=== PATIENT | female | born 1955 | race Caucasian/White ===

== ENCOUNTER → 2017-01-20 | Outpatient (CLI) | payer BC, OTHER ==
[~2017-01-20] MED LIST: AMBIEN 5MG TABLE5 MG PO; AMOXICILLIN 8751 TAB PO; CELEXA10 MG PO; CELEXA40 MG PO; FLEXERIL 1010 MG/TAB PO; LEVAQUIN 750MG750 M1 PO; LUNESTA 1MG TAB1 MG PO; LUNESTA3 MG PO; NORCO 325 MG-51 TAB PO; PERCOCET 325 MG1 TA2 PO; PREMPRO 0.3 MG-1 TAB PO; PROAIR HFA0.09 MG/AC IH
== END ==
LOC: MC.RAD 13:20
DX: Z12.31 Encounter for screening mammogram for malignant neoplasm of breast (principal); D24.2 Benign neoplasm of left breast; D24.1 Benign neoplasm of right breast

== ENCOUNTER 2017-10-12 15:48 | Outpatient (RCR) | payer BC | END 2017-10-14 15:44 | disposition home or self-care (01) | LOC: COL.CR 15:48 | DX: I50.22 Chronic systolic (congestive) heart failure (principal) ==

== ENCOUNTER → 2018-03-27 | Outpatient (CLI) | payer BC | LOC: MC.RAD 10:20 | DX: Z12.31 Encounter for screening mammogram for malignant neoplasm of breast (principal); Z98.82 Breast implant status ==

== ENCOUNTER 2018-06-28 14:25 | Outpatient (RCR) | payer SELFPAY | END 2018-06-29 | disposition home or self-care (01) | LOC: COL.CR | DX: Z02.9 Encounter for administrative examinations, unspecified (principal) ==

== ENCOUNTER 2018-09-25 13:11 | Outpatient (RCR) | payer SELFPAY | END 2018-09-26 | disposition home or self-care (01) | LOC: COL.CR | DX: Z02.9 Encounter for administrative examinations, unspecified (principal) ==

== ENCOUNTER 2018-12-22 14:38 | Outpatient (RCR) | payer SELFPAY | END 2018-12-28 | disposition home or self-care (01) | LOC: COL.CR | DX: Z02.89 Encounter for other administrative examinations (principal) ==

== ENCOUNTER 2019-03-30 15:29 | Outpatient (RCR) | payer SELFPAY | END 2019-04-01 | disposition home or self-care (01) | LOC: COL.CR | DX: Z02.89 Encounter for other administrative examinations (principal) ==

== ENCOUNTER → 2019-04-18 | Outpatient (CLI) | payer MEDICARE, OTHER | LOC: MC.RAD 10:15 | DX: Z12.31 Encounter for screening mammogram for malignant neoplasm of breast (principal); Z98.82 Breast implant status; Z95.0 Presence of cardiac pacemaker ==

== ENCOUNTER 2019-06-22 14:26 | Outpatient (RCR) | payer SELFPAY | END 2019-07-01 | disposition home or self-care (01) | LOC: COL.CR | DX: Z02.89 Encounter for other administrative examinations (principal) ==

== ENCOUNTER 2019-10-08 14:45 | Outpatient (RCR) | payer SELFPAY ==
[~2019-10-08 14:45] MED LIST changes: +ALDACTONE 25MG25 M1 PO; +ASPIRIN E.C. 8181 MG PO; +COREG 6.256.25 MG/TA PO; +ENTRESTO 24 MG1 EACH PO; +LIPITOR 10MG10 MG PO; +OSTEO-BI-FLEX 21 TAB PO; +THE MEDICINE S200 M2 PO; +VITAMIN D 1001000 IU PO
== END 2019-10-28 | disposition home or self-care (01) ==
LOC: COL.CR
DX: Z02.89 Encounter for other administrative examinations (principal)

== ENCOUNTER 2020-01-21 12:59 | Outpatient (RCR) | payer MEDICARE, OTHER | END 2020-01-27 | disposition home or self-care (01) | LOC: COL.CR | DX: Z02.89 Encounter for other administrative examinations (principal) ==

== ENCOUNTER 2020-05-12 06:12 | Day surgery (SDC) | payer MEDICARE ==
[~2020-05-12] VITALS: Ht 174 cm; Wt 74.5 kg
[2020-05-12 07:00] VITALS: BP 102/54; PULSE 66; TEMP 98.5
[2020-05-12] MEDS ORDERED: LASIX 40MG TABL40 MG PO (07:12)
--- NOTE | 2020-05-12 07:14 | NUR ---
TO RM 7 AT 0632- CALL LIGHT IN REACH AND AT BEDSIDE.
[2020-05-12 09:37] VITALS: BP 112/46; PULSE 83; TEMP 98.2
--- NOTE | 2020-05-12 09:37 | NUR ---
TO RM 7 PER CART FROM OR. PATIENT SHIVERING AND ADDITIONAL WARM BLANETS APPLIED. DENIES N/V, DENIES PAIN OR DISCOMFORT. OPERATIVE FOOT ELEVATED AND ICED ORDER. DRESSING CLEAN DRY INTACT.
--- NOTE | 2020-05-12 10:00 | NUR ---
CONTINUES TO SHIVER. RECEIVED A BEAR HUGGER AIR APPLIED.
[2020-05-12 10:15] VITALS: BP 114/63; PULSE 66
--- NOTE | 2020-05-12 10:15 | NUR ---
PATIENT STATED SHE IS FEELING BETTER. RECEIVED WATER AND TAKING SIPS.
[2020-05-12 10:30] VITALS: BP 108/54; PULSE 72
--- NOTE | 2020-05-12 10:30 | NUR ---
RECEIVED VANILLA PUDDING.
[2020-05-12 10:45] VITALS: BP 114/62; PULSE 74
--- NOTE | 2020-05-12 10:45 | NUR ---
ATE 100% AND TOLERATED WELL.
--- NOTE | 2020-05-12 11:00 | NUR ---
AMBULATED TO BATHROOM USING CRUTCHES AND HOLDING UP OPERATIVE FOOT. OPERATIVE FOOT IN POST OP SHOE.
--- NOTE | 2020-05-12 11:15 | NUR ---
RECEIVED DISCHARGE INSTRUCTIONS AND VERBALIZED UNDERSTANDING. DISCONTNUED IV AND INT. PATIENT GETTING DRESSED.
--- NOTE | 2020-05-12 11:30 | NUR ---
DISCHARGED PER WC BY NURSING STAFF TO PRIVATE CAR IN CARE OF [facility]
== END 2020-05-12 11:45 | disposition home or self-care (01) ==
LOC: SDCO 06:12
DX: M20.22 Hallux rigidus, left foot (principal); I11.0 Hypertensive heart disease with heart failure; I50.9 Heart failure, unspecified; I42.8 Other cardiomyopathies; I44.7 Left bundle-branch block, unspecified; J40 Bronchitis, not specified as acute or chronic; F32.9 Major depressive disorder, single episode, unspecified; G47.00 Insomnia, unspecified; G43.909 Migraine, unspecified, not intractable, without status migrainosus; Z80.0 Family history of malignant neoplasm of digestive organs; Z95.810 Presence of automatic (implantable) cardiac defibrillator; Z88.6 Allergy status to analgesic agent; Z79.899 Other long term (current) drug therapy; Z79.82 Long term (current) use of aspirin; Z97.4 Presence of external hearing-aid
CPT/HCPCS: C1713; J2250; J2704; J2710; J3010; J7050; J7120

== ENCOUNTER 2020-07-09 16:06 | Outpatient (RCR) | payer SELFPAY ==
[~2020-07-09 16:06] MED LIST changes: +LASIX 40MG TABL40 MG PO
== END 2020-07-10 | disposition home or self-care (01) ==
LOC: COL.CR
DX: Z02.89 Encounter for other administrative examinations (principal)

== ENCOUNTER 2020-09-15 15:51 | Outpatient (RCR) | payer SELFPAY | END 2020-10-09 | disposition home or self-care (01) | LOC: COL.CR | DX: Z02.89 Encounter for other administrative examinations (principal) ==

== ENCOUNTER 2021-02-12 14:52 | Emergency (ER) | payer MEDICARE, OTHER ==
[~2021-02-12] VITALS: Ht 172.7 cm; Wt 75.0 kg
[2021-02-12 15:00] VITALS: BP 135/97; TEMP 98.2
[2021-02-12 16:47] VITALS: PULSE 81
== END 2021-02-12 16:48 | disposition home or self-care (01) ==
LOC: COL.ER 14:52
DX: S01.511A Laceration without foreign body of lip, initial encounter (principal); S09.93XA Unspecified injury of face, initial encounter; Z79.82 Long term (current) use of aspirin; W18.09XA Striking against other object with subsequent fall, initial encounter

== ENCOUNTER 2021-03-25 15:41 | Outpatient (RCR) | payer SELFPAY | END 2021-05-17 | disposition home or self-care (01) | LOC: COL.CR | DX: Z02.89 Encounter for other administrative examinations (principal) ==